=== PATIENT | female | born 1955 | race Hispanic/Latino ===

== ENCOUNTER 2018-06-14 08:06 | Day surgery (SDC) | payer MEDICARE ==
[2018-06-14 08:25] VITALS: BMI 30.9
[2018-06-14] MEDS ORDERED: Lactated Ringer's 500 ML IV ONE (10:04)
--- NOTE | 2018-06-14 10:06 | CP.SDSHP ---
Same Day Surgery H & P - History Proposed Procedure: colonoscopy Pre-Op Diagnosis: rectal bleed - Previous Medical/Surgical History Comments: H dis - Allergies Allergies: Allergies No Known Allergies Allergy (Verified 06/14/18 08:25) - Physical Exam Vital Signs: Vital Signs 06/14/18 06/14/18 08:41 09:01 Temperature 98.4 F Pulse Rate 72 72 Respiratory 19 Rate Blood Pressure 143/71 O2 Sat by Pulse 98 Oximetry Mental Status: Alert & Oriented x3 Neuro: WNL Heart: WNL Lungs: WNL GI: WNL - {Optional Preform as Required} Abdomen: WNL - Impression Impression: rect bleed Pt. Evaluated Today:Candidate for Anesthesia & Procedure: Yes - Date & Time Date: 06/14/18 Time: 09:40 Short Stay Discharge - Short Stay Discharge Admitting Diagnosis/Reason for Visit: RECTAL BLEEDING Disposition: HOME/ ROUTINE
[2018-06-14] MEDS ORDERED: Propofol 10 mg/ml Inj (20 ML) ONE ×2 (10:09)
[2018-06-14 11:10] VITALS: TEMP 97.8
[2018-06-14 11:49] VITALS: BP 157/85; PULSE 69; RESP 18; O2SAT 100
== END 2018-06-14 11:30 | disposition home or self-care (01) ==
LOC: C.ENDO 08:06
PROVIDERS: ATTEND Internal Medicine Gastroenterology
DX: K63.5 Polyp of colon (principal); K62.5 Hemorrhage of anus and rectum; K64.8 Other hemorrhoids
CPT/HCPCS: 45380; 88305; J2001; J2704; J7120